=== PATIENT | male | born 1985 | race Caucasian/White ===

== ENCOUNTER 2016-08-02 13:26 | Emergency (ER) | payer SELFPAY ==
[2016-08-02] MEDS ORDERED: diazePAM 5 MG TAB As Ordered ONE (15:10)
[2016-08-02] MEDS ORDERED: KETOROLAC 30 MG/ML VIAL (J1885) As Ordered ONE (15:10)
--- NOTE | 2016-08-02 18:43 | REP ---
MRI LUMBAR SPINE WITHOUT CONTRAST: HISTORY: Back pain. Decreased signal intensity on T2-weighted images is present in the L3-4 and L4-5 intervertebral discs. The discs are decreased in height. These findings are consistent with disc degeneration. A diffuse disc bulge is present at the L1-2 level. There is minimal compression of the thecal sac. The L1 nerves exit the neural foramina without compression. A diffuse disc bulge is present at the L2-3 level. There is minimal compression of the thecal sac. The L2 nerves exit the neural foramina without compression. A diffuse disc bulge and small central disc protrusion are present at the L3-4 level. There is hypertrophy of the ligamenta flava and posterior articulating facets. These findings produce minimal central canal stenosis. The L3 nerves exit the neural foramina without compression. A diffuse disc bulge and mild size central disc extrusion are present at the L4-5 level. There is inferior migration of disc material. There is mild compression of the thecal sac and L5 nerves as they exit the thecal sac and in the L5 lateral recess. There is hypertrophy of the posterior articulating facets. The L4 nerves exit the neural foramina without compression. There is no disc bulge or herniation at the L5-S1 level. The L5 nerves exit the neural foramina without compression. The conus medullaris is normal in appearance terminating at the level of the T12-L1 intervertebral disc. A hemangioma is present in the L5 vertebral body. Increased signal intensity on T2-weighted images is present in the superior endplate of the L4 vertebral body. This represents degenerative change. IMPRESSION: 1. Diffuse disc bulges at the L1-2 and L2-3 levels with minimal thecal sac compression. 2. Minimal central canal stenosis at the L3-4 level secondary to disc bulge, disc protrusion, ligamentous and facet hypertrophy. 3. Diffuse disc bulge and mild sized central disc extrusion at the L4-5 level with mild compression of the thecal sac and L5 nerves as they exit the thecal sac and in the L5 lateral recess. Signed by Manolo Issa MD 08/03/2016 08:19 A
--- NOTE | 2016-08-02 19:30 | EDDOCDS ---
Nurse's Notes [facility] Name: Winston Rosario Age: 30 yrs Sex: Male : 1985 Arrival Date: 08/02/2016 Time: 13:26 Bed I6 / 28 Private MD: No Pcp Diagnosis: Intervertebral disc disorders with radiculopathy, lumbosacral region;Intervertebral disc stenosis of neural canal of lumbar region;Other intervertebral disc disorders, lumbar region;Other intervertebral disc disorders, lumbosacral region Presentation: 08/02 13:30 Presenting complaint: Patient states: lower back pain on and off for few years. pain rs3 radiating to Left leg, numbness, tingling in left leg and toes for few weeks. Adult Sepsis Screening: The patient does not have new or worsening altered mentation. Patient's respiratory rate is less than 22. Systolic blood pressure is greater than 100. Patient has a qSOFA score of 0- Negative Sepsis Screen. Suicide/Homicide risk assessment- the patient denies having any suicidal and/or homicidal ideations and does not present with any other emotional, behavioral or mental health complaints. Status: Patient is not a kosher dietary service manager or dependent. Transition of care: patient was not received from another setting of care. 13:30 Acuity: LIAN Level 4 rs3 13:30 Method Of Arrival: Walkin/Carried/Asstd rs3 Triage Assessment: 13:32 General: Appears in no apparent distress. Pain: Location: lumbar area. Pt Declines HIV rs3 testing. Historical: - Allergies: no known allergies; - Home Meds: 1. none - PMHx: none; - PSHx: none; - Social history: Smoking status: Patient states former smoker of tobacco. No barriers to communication noted, The patient speaks fluent Ivorian. - Family history: Not pertinent. - : The pt / caregiver states he / she is not on anticoagulants. Home medication list is obtained from the patient. - Exposure Risk Screening:: None identified. Screenin:01 Screening information is obtained from the patient. Fall risk: No risks identified. kr3 Assistance ADL's: requires no assistance with activities of daily living. Abuse/DV Screen: The patient / caregiver reports he/she is: not in a situation that causes fear, pain or injury. Nutritional screening: No deficits noted. Advance Directives: Currently, there is no health care proxy. home support is adequate. Assessment: 16:01 Reassessment: Patient appears in no apparent distress at this time. Patient denies pain kr3 at this time. Neurological: Level of Consciousness is awake, alert. Respiratory: Respiratory effort is even, unlabored. Derm: Skin is normal. 17:14 Reassessment: Patient appears in no apparent distress at this time. kr3 17:24 General: Appears in no apparent distress, Behavior is appropriate for age, cooperative. dsf Pain: Location: lumbar area Pain currently is 3 out of 10 on a pain scale. Neurological: Level of Consciousness is awake, alert. Cardiovascular: Capillary refill < 3 seconds. Respiratory: Airway is patent Respiratory effort is even, unlabored, Respiratory pattern is regular, symmetrical. Derm: Skin is pink, warm & dry. 18:44 General: Appears in no apparent distress, Behavior is appropriate for age, cooperative. dsf Neurological: Level of Consciousness is awake, alert. Cardiovascular: Capillary refill < 3 seconds. Respiratory: Airway is patent Respiratory effort is even, unlabored, Respiratory pattern is regular, symmetrical. Derm: Skin is pink, warm & dry. 19:28 Adult Sepsis Screening: The patient does not have new or worsening altered mentation. dsf Patient's respiratory rate is less than 22. Systolic blood pressure is greater than 100. Patient has a qSOFA score of 0- Negative Sepsis Screen. General: Appears in no apparent distress, comfortable, Behavior is appropriate for age, cooperative. Pain: Location: lumbar area Pain currently is 7 out of 10 on a pain scale. Neurological: Level of Consciousness is awake, alert, Oriented to person, place, time. Cardiovascular: No deficits noted. Respiratory: No deficits noted. Derm: Skin is pink, warm & dry. Vital Signs: 13:28 BP 126 / 73; Pulse 69; Resp 18 S; Temp 98.4(O); Pulse Ox 100% on R/A; Weight 90.72 kg; gr2 Height 5 ft. 7 in. (170.18 cm) (R); Pain 6/10; 17:06 BP 109 / 62; Pulse 55; Resp 18; Temp 97.8; Pulse Ox 98% ; Pain 3/10; jam1 18:44 BP 106 / 53; Pulse 54; Resp 18; Temp 97.4; Pulse Ox 96% ; Pain 0/10; ajs 13:28 Body Mass Index 31.32 (90.72 kg, 170.18 cm) gr2 Vitals: 13:28 Log In Time: August 02, 2016 at 13:28. gr2 ED Course: 13:26 Patient visited by Son Koenig. gr2 13:26 Patient moved to Waiting gr2 13:27 No Pcp is Private Physician. gr2 13:29 Patient visited by Son Koenig. gr2 13:30 Patient moved to Pre RCE gr2 13:31 Triage Initiated rs3 14:29 Patient moved to Triage 1 rs3 14:50 Julee Murrell PA-C is PHCP. dt4 14:50 Jono Villela MD is Attending Physician. dt4 14:50 Patient visited by Julee Murrell PA-C. dt4 15:06 Patient moved to I6 mk4 15:29 Patient visited by Carley Ramos RN. mk4 15:53 REPLACED BY [facility] Payment Agreement was scanned into [employer] and attached to record. jp5 16:00 Patient visited by Crissy Mcguire RN. kr3 16:00 Patient moved to MRI kr3 16:01 The patient / caregiver is instructed regarding the plan of care and ED course. kr3 Accompanied by Family Member, Patient has correct armband on for positive identification. 16:01 No procedures done that require assistance. kr3 16:57 Patient name changed from Winston\S\L\S\Abraham\S\ to Winston\S\Jailene\S\Abraham. EDMS 17:02 Patient moved to I6 dsf 17:14 Patient visited by Crissy Mcguire,SAGAR. kr3 17:25 Patient visited by Dayana Neal,SAGAR. dsf 18:02 PHCP role handed off by Julee Murrell PA-C btw 18:02 Norris Diallo PA is PHCP. btw 18:44 Patient visited by Dayana Neal,SAGAR. dsf 18:45 Patient visited by Velvet Landers. ajs 19:12 -MRI-Spine, Lumbar without contrast Returned. EDMS 19:23 Robin Sun is Referral Physician. btw 19:28 No IV's were initiated during this patient's visit. dsf Administered Medications: 15:29 Drug: ketorolac 60 mg [ketorolac 30 mg/mL (1 mL) injection solution (2 mL)] Route: IM; mk4 Site: left gluteus; 16:00 Follow up: Response: Pain is resolved kr3 15:29 Drug: Diazepam 5 mg [diazepam 5 mg tablet (1 tabs)] Route: PO; mk4 16:00 Follow up: Response: No Adverse Reaction kr3 Order Results: Radiology Order: -MRI-Spine, Lumbar without contrast Test: -MRI-Spine, Lumbar without contrast REASON FOR EXAMINATION: LOW BACK PAIN, LEFT LEG NUMB/WEAK; MRI LUMBAR SPINE WITHOUT CONTRAST:; ; HISTORY: Back pain.; ; Decreased signal intensity on T2-weighted images is present in the L3-4 and L4-5; intervertebral discs. The discs are decreased in height. These findings are; consistent with disc degeneration.; ; A diffuse disc bulge is present at the L1-2 level. There is minimal compression; of the thecal sac. The L1 nerves exit the neural foramina without compression.; ; A diffuse disc bulge is present at the L2-3 level. There is minimal compression; of the thecal sac. The L2 nerves exit the neural foramina without compression.; ; A diffuse disc bulge and small central disc protrusion are present at the L3-4; level. There is hypertrophy of the ligamenta flava and posterior articulating; facets. These findings produce minimal central canal stenosis. The L3 nerves exit; the neural foramina without compression.; ; A diffuse disc bulge and mild size central disc extrusion are present at the L4-5; level. There is inferior migration of disc material. There is mild compression of; the thecal sac and L5 nerves as they exit the thecal sac and in the L5 lateral; recess. There is hypertrophy of the posterior articulating facets. The L4 nerves; exit the neural foramina without compression.; ; There is no disc bulge or herniation at the L5-S1 level. The L5 nerves exit the; neural foramina without compression.; ; The conus medullaris is normal in appearance terminating at the level of the; T12-L1 intervertebral disc. A hemangioma is present in the L5 vertebral body.; Increased signal intensity on T2-weighted images is present in the superior; endplate of the L4 vertebral body. This represents degenerative change.; ; IMPRESSION:; 1. Diffuse disc bulges at the L1-2 and L2-3 levels with minimal thecal sac; compression.; 2. Minimal central canal stenosis at the L3-4 level secondary to disc bulge, disc; protrusion, ligamentous and facet hypertrophy.; 3. Diffuse disc bulge and mild sized central disc extrusion at the L4-5 level; with mild compression of the thecal sac and L5 nerves as they exit the thecal sac; and in the L5 lateral recess.; ; ; ; Unreviewed; Outcome: 16:01 MRI Study completed. kr3 19:24 Discharge ordered by Provider. btw 19:28 Discharge Assessment: Patient awake, alert and oriented x 3. No cognitive and/or dsf functional deficits noted. Patient verbalized understanding of disposition instructions. patient administered narcotics - yes. Pt provided with safe discharge. The following High Risk Discharge criteria are identified: None. Discharged to home ambulatory, with significant other. Condition: stable. Discharge instructions given to patient, significant other, Instructed on discharge instructions, follow up and referral plans. medication usage, no driving heavy equipment, Demonstrated understanding of instructions, medications, Pt was receptive of discharge instructions/ teaching. Prescriptions given X 3. Property sent home with patient. 19:29 Patient left the ED. dsf Signatures: Dispatcher [employer] EDMS Racheal Le, HOT BILLET SHEAR OPERATOR HOT BILLET SHEAR OPERATOR jam1 rCissy Mcguire,RN RN kr3 Daniela HollingsworthRN RN rs3 Norris Diallo PA PA btw Fuller, Desiree, RN RN dsf Velvet Landers Gainslee gr2 Carley Ramos RN RN mk4 Julee Murrell PA-C PA-C dt4 Merrill Moran jp5 MTDD
--- NOTE | 2016-08-02 19:30 | EDDOCDS ---
Physician Documentation [facility] Name: Winston Rosario Age: 30 yrs Sex: Male : 1985 Arrival Date: 08/02/2016 Time: 13:26 Bed I6 / 28 Private MD: No Pcp Disposition: 08/02/16 19:24 Discharged to Home/Self Care. Impression: Intervertebral disc disorders with radiculopathy, lumbosacral region, Intervertebral disc stenosis of neural canal of lumbar region, Other intervertebral disc disorders, lumbar region, Other intervertebral disc disorders, lumbosacral region. - Condition is Stable. - Discharge Instructions: Herniated Disk, Lumbosacral Radiculopathy, Degenerative Disk Disease. - Prescriptions for Medrol (Jamal) 4 mg Oral Tablets, Dose Pack - take 1 Pack by ORAL route as directed - follow package instructions; 1 packet. Tramadol 50 mg Oral Tablet - take 1 tablet by ORAL route 4 times per day As needed MDD: 4 tabs; 20 tablet. Robaxin- 750 750 mg Oral Tablet - take 1 tablet by ORAL route every 6 hours As needed; 40 tablet. - Medication Reconciliation, Local Pharmacy Hours form. - Follow up: Robin Sun; When: 1 - 2 days; Reason: Further diagnostic work-up, Recheck today's complaints, Continuance of care. - Problem is new. - Symptoms are unchanged. Historical: - Allergies: no known allergies; - Home Meds: 1. none - PMHx: none; - PSHx: none; - Social history: Smoking status: Patient states former smoker of tobacco. No barriers to communication noted, The patient speaks fluent Slovak. - Family history: Not pertinent. - : The pt / caregiver states he / she is not on anticoagulants. Home medication list is obtained from the patient. - Exposure Risk Screening:: None identified. Vital Signs: 08/02 13:28 BP 126 / 73; Pulse 69; Resp 18 S; Temp 98.4(O); Pulse Ox 100% on R/A; Weight 90.72 kg / gr2 200 lbs; Height 5 ft. 7 in. (170.18 cm) (R); Pain 6/10; 17:06 BP 109 / 62; Pulse 55; Resp 18; Temp 97.8; Pulse Ox 98% ; Pain 3/10; jam1 18:44 BP 106 / 53; Pulse 54; Resp 18; Temp 97.4; Pulse Ox 96% ; Pain 0/10; ajs 13:28 Body Mass Index 31.32 (90.72 kg, 170.18 cm) gr2 MDM: 15:05 MRI Screening Tool - Place on chart, inform RN ordered. dt4 15:05 ketorolac 60 mg IM once ordered. dt4 15:05 Diazepam 5 mg PO once ordered. dt4 15:06 -MRI-Spine, Lumbar without contrast Ordered. EDMS 15:29 MRI Screening Tool - Place on chart, inform RN complete. mk4 15:53 [facility] Payment Agreement was scanned into [facility] and attached to record. jp5 15:53 Financial registration complete. jp5 Administered Medications: 15:29 Drug: ketorolac 60 mg [ketorolac 30 mg/mL (1 mL) injection solution (2 mL)] Route: IM; mk4 Site: left gluteus; 16:00 Follow up: Response: Pain is resolved kr3 15:29 Drug: Diazepam 5 mg [diazepam 5 mg tablet (1 tabs)] Route: PO; mk4 16:00 Follow up: Response: No Adverse Reaction kr3 Signatures: Dispatcher [employer] EDMS Crissy Mcguire,RN RN kr3 Daniela HollingsworthRN RN rs3 Norris Diallo PA PA btw Fuller, Desiree,RN RN dsCarley Spivey RN RN mk4 Julee Murrell PA-C PAMerrill Tam jp5 The chart was reviewed and I authenticate all verbal orders and agree with the evaluation and treatment provided.Attachments: 15:53 [facility] Payment Agreement jp5 MTDD
--- NOTE | 2016-08-04 20:30 | EDDOCDS ---
Physician Documentation [facility] Name: Winston Rosario Age: 30 yrs Sex: Male : 1985 Arrival Date: 08/02/2016 Time: 13:26 Bed I6 / 28 Private MD: No Pcp Disposition: 08/02/16 19:24 Discharged to Home/Self Care. Impression: Intervertebral disc disorders with radiculopathy, lumbosacral region, Intervertebral disc stenosis of neural canal of lumbar region, Other intervertebral disc disorders, lumbar region, Other intervertebral disc disorders, lumbosacral region. - Condition is Stable. - Discharge Instructions: Herniated Disk, Lumbosacral Radiculopathy, Degenerative Disk Disease. - Prescriptions for Medrol (Jamal) 4 mg Oral Tablets, Dose Pack - take 1 Pack by ORAL route as directed - follow package instructions; 1 packet. Tramadol 50 mg Oral Tablet - take 1 tablet by ORAL route 4 times per day As needed MDD: 4 tabs; 20 tablet. Robaxin- 750 750 mg Oral Tablet - take 1 tablet by ORAL route every 6 hours As needed; 40 tablet. - Medication Reconciliation, Local Pharmacy Hours form. - Follow up: Robin Sun; When: 1 - 2 days; Reason: Further diagnostic work-up, Recheck today's complaints, Continuance of care. - Problem is new. - Symptoms are unchanged. Historical: - Allergies: no known allergies; - Home Meds: 1. none - PMHx: none; - PSHx: none; - Social history: Smoking status: Patient states former smoker of tobacco. No barriers to communication noted, The patient speaks fluent Hungarian. - Family history: Not pertinent. - : The pt / caregiver states he / she is not on anticoagulants. Home medication list is obtained from the patient. - Exposure Risk Screening:: None identified. Vital Signs: 08/02 13:28 BP 126 / 73; Pulse 69; Resp 18 S; Temp 98.4(O); Pulse Ox 100% on R/A; Weight 90.72 kg / gr2 200 lbs; Height 5 ft. 7 in. (170.18 cm) (R); Pain 6/10; 17:06 BP 109 / 62; Pulse 55; Resp 18; Temp 97.8; Pulse Ox 98% ; Pain 3/10; jam1 18:44 BP 106 / 53; Pulse 54; Resp 18; Temp 97.4; Pulse Ox 96% ; Pain 0/10; ajs 13:28 Body Mass Index 31.32 (90.72 kg, 170.18 cm) gr2 MDM: 15:05 MRI Screening Tool - Place on chart, inform RN ordered. dt4 15:05 ketorolac 60 mg IM once ordered. dt4 15:05 Diazepam 5 mg PO once ordered. dt4 15:06 -MRI-Spine, Lumbar without contrast Ordered. EDMS 15:29 MRI Screening Tool - Place on chart, inform RN complete. mk4 15:53 [facility] Payment Agreement was scanned into [employer] and attached to record. jp5 15:53 Financial registration complete. jp5 08/03 10:14 T-Sheet-- Draft Copy was scanned into [employer] and attached to record. gb 10:15 Radiology Report was scanned into [employer] and attached to record. gb Administered Medications: 08/02 15:29 Drug: ketorolac 60 mg [ketorolac 30 mg/mL (1 mL) injection solution (2 mL)] Route: IM; mk4 Site: left gluteus; 16:00 Follow up: Response: Pain is resolved kr3 15:29 Drug: Diazepam 5 mg [diazepam 5 mg tablet (1 tabs)] Route: PO; mk4 16:00 Follow up: Response: No Adverse Reaction kr3 Signatures: Dispatcher [employer] EDMS Jennifer Yang, Ike Reg Crissy SingerRN RN kr3 Daniela HollingsworthRN RN rs3 Norris Diallo PA PA btw Fuller, DesireeRN RN dsCarley Spivey RN RN mk4 Julee Murrell PA-C PAJulian chun4 Merrill Moran jp5 The chart was reviewed and I authenticate all verbal orders and agree with the evaluation and treatment provided.Attachments: 15:53 [facility] Payment Agreement jp5 08/03 10:14 T-Sheet-- Draft Copy gb Chart Complete MTDD
--- NOTE | 2016-08-04 20:30 | EDDOCDS ---
Nurse's Notes [facility] Name: Winston Rosario Age: 30 yrs Sex: Male : 1985 Arrival Date: 08/02/2016 Time: 13:26 Bed I6 / 28 Private MD: No Pcp Diagnosis: Intervertebral disc disorders with radiculopathy, lumbosacral region;Intervertebral disc stenosis of neural canal of lumbar region;Other intervertebral disc disorders, lumbar region;Other intervertebral disc disorders, lumbosacral region Presentation: 08/02 13:30 Presenting complaint: Patient states: lower back pain on and off for few years. pain rs3 radiating to Left leg, numbness, tingling in left leg and toes for few weeks. Adult Sepsis Screening: The patient does not have new or worsening altered mentation. Patient's respiratory rate is less than 22. Systolic blood pressure is greater than 100. Patient has a qSOFA score of 0- Negative Sepsis Screen. Suicide/Homicide risk assessment- the patient denies having any suicidal and/or homicidal ideations and does not present with any other emotional, behavioral or mental health complaints. Status: Patient is not a student services rep or dependent. Transition of care: patient was not received from another setting of care. 13:30 Acuity: LIAN Level 4 rs3 13:30 Method Of Arrival: Walkin/Carried/Asstd rs3 Triage Assessment: 13:32 General: Appears in no apparent distress. Pain: Location: lumbar area. Pt Declines HIV rs3 testing. Historical: - Allergies: no known allergies; - Home Meds: 1. none - PMHx: none; - PSHx: none; - Social history: Smoking status: Patient states former smoker of tobacco. No barriers to communication noted, The patient speaks fluent Turkish. - Family history: Not pertinent. - : The pt / caregiver states he / she is not on anticoagulants. Home medication list is obtained from the patient. - Exposure Risk Screening:: None identified. Screenin:01 Screening information is obtained from the patient. Fall risk: No risks identified. kr3 Assistance ADL's: requires no assistance with activities of daily living. Abuse/DV Screen: The patient / caregiver reports he/she is: not in a situation that causes fear, pain or injury. Nutritional screening: No deficits noted. Advance Directives: Currently, there is no health care proxy. home support is adequate. Assessment: 16:01 Reassessment: Patient appears in no apparent distress at this time. Patient denies pain kr3 at this time. Neurological: Level of Consciousness is awake, alert. Respiratory: Respiratory effort is even, unlabored. Derm: Skin is normal. 17:14 Reassessment: Patient appears in no apparent distress at this time. kr3 17:24 General: Appears in no apparent distress, Behavior is appropriate for age, cooperative. dsf Pain: Location: lumbar area Pain currently is 3 out of 10 on a pain scale. Neurological: Level of Consciousness is awake, alert. Cardiovascular: Capillary refill < 3 seconds. Respiratory: Airway is patent Respiratory effort is even, unlabored, Respiratory pattern is regular, symmetrical. Derm: Skin is pink, warm & dry. 18:44 General: Appears in no apparent distress, Behavior is appropriate for age, cooperative. dsf Neurological: Level of Consciousness is awake, alert. Cardiovascular: Capillary refill < 3 seconds. Respiratory: Airway is patent Respiratory effort is even, unlabored, Respiratory pattern is regular, symmetrical. Derm: Skin is pink, warm & dry. 19:28 Adult Sepsis Screening: The patient does not have new or worsening altered mentation. dsf Patient's respiratory rate is less than 22. Systolic blood pressure is greater than 100. Patient has a qSOFA score of 0- Negative Sepsis Screen. General: Appears in no apparent distress, comfortable, Behavior is appropriate for age, cooperative. Pain: Location: lumbar area Pain currently is 7 out of 10 on a pain scale. Neurological: Level of Consciousness is awake, alert, Oriented to person, place, time. Cardiovascular: No deficits noted. Respiratory: No deficits noted. Derm: Skin is pink, warm & dry. Vital Signs: 13:28 BP 126 / 73; Pulse 69; Resp 18 S; Temp 98.4(O); Pulse Ox 100% on R/A; Weight 90.72 kg; gr2 Height 5 ft. 7 in. (170.18 cm) (R); Pain 6/10; 17:06 BP 109 / 62; Pulse 55; Resp 18; Temp 97.8; Pulse Ox 98% ; Pain 3/10; jam1 18:44 BP 106 / 53; Pulse 54; Resp 18; Temp 97.4; Pulse Ox 96% ; Pain 0/10; ajs 13:28 Body Mass Index 31.32 (90.72 kg, 170.18 cm) gr2 Vitals: 13:28 Log In Time: August 02, 2016 at 13:28. gr2 ED Course: 13:26 Patient visited by Son Koenig. gr2 13:26 Patient moved to Waiting gr2 13:27 No Pcp is Private Physician. gr2 13:29 Patient visited by Son Koenig. gr2 13:30 Patient moved to Pre RCE gr2 13:31 Triage Initiated rs3 14:29 Patient moved to Triage 1 rs3 14:50 Julee Murrell PA-C is PHCP. dt4 14:50 Jono Villela MD is Attending Physician. dt4 14:50 Patient visited by Julee Murrell PA-C. dt4 15:06 Patient moved to I mk4 15:29 Patient visited by Carley Ramos RN. mk4 15:53 [facility] Payment Agreement was scanned into [employer] and attached to record. jp5 16:00 Patient visited by Crissy Mcguire RN. kr3 16:00 Patient moved to MRI kr3 16:01 The patient / caregiver is instructed regarding the plan of care and ED course. kr3 Accompanied by Family Member, Patient has correct armband on for positive identification. 16:01 No procedures done that require assistance. kr3 16:57 Patient name changed from Winston\S\L\S\Abraham\S\ to Winston\S\Jailene\S\Abraham. EDMS 17:02 Patient moved to I6 dsf 17:14 Patient visited by Crissy Mcguire,SAGAR. kr3 17:25 Patient visited by Dayana Neal,SAGAR. dsf 18:02 PHCP role handed off by Julee Murrell PA-C btw 18:02 Norris Diallo PA is PHCP. btw 18:44 Patient visited by Dayana Neal,SAGAR. dsf 18:45 Patient visited by Velvet Landers. ajs 19:12 -MRI-Spine, Lumbar without contrast Returned. EDMS 19:23 Robin Sun is Referral Physician. btw 19:28 No IV's were initiated during this patient's visit. dsf 01/13 10:14 T-Sheet-- Draft Copy was scanned into [employer] and attached to record. gb 10:15 Radiology Report was scanned into [employer] and attached to record. gb Administered Medications: 08/02 15:29 Drug: ketorolac 60 mg [ketorolac 30 mg/mL (1 mL) injection solution (2 mL)] Route: IM; mk4 Site: left gluteus; 16:00 Follow up: Response: Pain is resolved kr3 15:29 Drug: Diazepam 5 mg [diazepam 5 mg tablet (1 tabs)] Route: PO; mk4 16:00 Follow up: Response: No Adverse Reaction kr3 Order Results: Radiology Order: -MRI-Spine, Lumbar without contrast Test: -MRI-Spine, Lumbar without contrast REASON FOR EXAMINATION: LOW BACK PAIN, LEFT LEG NUMB/WEAK; MRI LUMBAR SPINE WITHOUT CONTRAST:; ; HISTORY: Back pain.; ; Decreased signal intensity on T2-weighted images is present in the L3-4 and L4-5; intervertebral discs. The discs are decreased in height. These findings are; consistent with disc degeneration.; ; A diffuse disc bulge is present at the L1-2 level. There is minimal compression; of the thecal sac. The L1 nerves exit the neural foramina without compression.; ; A diffuse disc bulge is present at the L2-3 level. There is minimal compression; of the thecal sac. The L2 nerves exit the neural foramina without compression.; ; A diffuse disc bulge and small central disc protrusion are present at the L3-4; level. There is hypertrophy of the ligamenta flava and posterior articulating; facets. These findings produce minimal central canal stenosis. The L3 nerves exit; the neural foramina without compression.; ; A diffuse disc bulge and mild size central disc extrusion are present at the L4-5; level. There is inferior migration of disc material. There is mild compression of; the thecal sac and L5 nerves as they exit the thecal sac and in the L5 lateral; recess. There is hypertrophy of the posterior articulating facets. The L4 nerves; exit the neural foramina without compression.; ; There is no disc bulge or herniation at the L5-S1 level. The L5 nerves exit the; neural foramina without compression.; ; The conus medullaris is normal in appearance terminating at the level of the; T12-L1 intervertebral disc. A hemangioma is present in the L5 vertebral body.; Increased signal intensity on T2-weighted images is present in the superior; endplate of the L4 vertebral body. This represents degenerative change.; ; IMPRESSION:; ; 1. Diffuse disc bulges at the L1-2 and L2-3 levels with minimal thecal sac; compression.; ; 2. Minimal central canal stenosis at the L3-4 level secondary to disc bulge, disc; protrusion, ligamentous and facet hypertrophy.; ; 3. Diffuse disc bulge and mild sized central disc extrusion at the L4-5 level; with mild compression of the thecal sac and L5 nerves as they exit the thecal sac; and in the L5 lateral recess.; ; ; Signed by; Manolo Issa MD 08/03/2016 08:19 A; Outcome: 16:01 MRI Study completed. kr3 19:24 Discharge ordered by Provider. btw 19:28 Discharge Assessment: Patient awake, alert and oriented x 3. No cognitive and/or dsf functional deficits noted. Patient verbalized understanding of disposition instructions. patient administered narcotics - yes. Pt provided with safe discharge. The following High Risk Discharge criteria are identified: None. Discharged to home ambulatory, with significant other. Condition: stable. Discharge instructions given to patient, significant other, Instructed on discharge instructions, follow up and referral plans. medication usage, no driving heavy equipment, Demonstrated understanding of instructions, medications, Pt was receptive of discharge instructions/ teaching. Prescriptions given X 3. Property sent home with patient. 19:29 Patient left the ED. dsf Signatures: Dispatcher [employer] EDMS Racheal Le, BRIDGE WORKER APPRENTICE BRIDGE WORKER APPRENTICE jam1 Jennifer Yang, Reg Reg Crissy Singer,RN RN kr3 Daniela HollingsworthRN RN rs3 Norris Diallo PA PA btw Fuller, Desiree,RN RN dsf Velvet Landers Gainslee gr2 Carley Ramos RN RN mk4 Julee Murrell, PA-C PA-C adiel4 Merrill Moran jp5 Chart Complete MTDD
--- NOTE | 2016-08-04 20:30 | EDDOCDS ---
Physician Documentation [facility] Name: Winston Rosario Age: 30 yrs Sex: Male : 1985 Arrival Date: 08/02/2016 Time: 13:26 Bed I6 / 28 Private MD: No Pcp Disposition: 08/02/16 19:24 Discharged to Home/Self Care. Impression: Intervertebral disc disorders with radiculopathy, lumbosacral region, Intervertebral disc stenosis of neural canal of lumbar region, Other intervertebral disc disorders, lumbar region, Other intervertebral disc disorders, lumbosacral region. - Condition is Stable. - Discharge Instructions: Herniated Disk, Lumbosacral Radiculopathy, Degenerative Disk Disease. - Prescriptions for Medrol (Jamal) 4 mg Oral Tablets, Dose Pack - take 1 Pack by ORAL route as directed - follow package instructions; 1 packet. Tramadol 50 mg Oral Tablet - take 1 tablet by ORAL route 4 times per day As needed MDD: 4 tabs; 20 tablet. Robaxin- 750 750 mg Oral Tablet - take 1 tablet by ORAL route every 6 hours As needed; 40 tablet. - Medication Reconciliation, Local Pharmacy Hours form. - Follow up: Robin Sun; When: 1 - 2 days; Reason: Further diagnostic work-up, Recheck today's complaints, Continuance of care. - Problem is new. - Symptoms are unchanged. Historical: - Allergies: no known allergies; - Home Meds: 1. none - PMHx: none; - PSHx: none; - Social history: Smoking status: Patient states former smoker of tobacco. No barriers to communication noted, The patient speaks fluent Romansh. - Family history: Not pertinent. - : The pt / caregiver states he / she is not on anticoagulants. Home medication list is obtained from the patient. - Exposure Risk Screening:: None identified. Vital Signs: 08/02 13:28 BP 126 / 73; Pulse 69; Resp 18 S; Temp 98.4(O); Pulse Ox 100% on R/A; Weight 90.72 kg / gr2 200 lbs; Height 5 ft. 7 in. (170.18 cm) (R); Pain 6/10; 17:06 BP 109 / 62; Pulse 55; Resp 18; Temp 97.8; Pulse Ox 98% ; Pain 3/10; jam1 18:44 BP 106 / 53; Pulse 54; Resp 18; Temp 97.4; Pulse Ox 96% ; Pain 0/10; ajs 13:28 Body Mass Index 31.32 (90.72 kg, 170.18 cm) gr2 MDM: 15:05 MRI Screening Tool - Place on chart, inform RN ordered. dt4 15:05 ketorolac 60 mg IM once ordered. dt4 15:05 Diazepam 5 mg PO once ordered. dt4 15:06 -MRI-Spine, Lumbar without contrast Ordered. EDMS 15:29 MRI Screening Tool - Place on chart, inform RN complete. mk4 15:53 [facility] Payment Agreement was scanned into [employer] and attached to record. jp5 15:53 Financial registration complete. jp5 08/03 10:14 T-Sheet-- Draft Copy was scanned into [employer] and attached to record. gb 10:15 Radiology Report was scanned into [employer] and attached to record. gb Administered Medications: 08/02 15:29 Drug: ketorolac 60 mg [ketorolac 30 mg/mL (1 mL) injection solution (2 mL)] Route: IM; mk4 Site: left gluteus; 16:00 Follow up: Response: Pain is resolved kr3 15:29 Drug: Diazepam 5 mg [diazepam 5 mg tablet (1 tabs)] Route: PO; mk4 16:00 Follow up: Response: No Adverse Reaction kr3 Signatures: Dispatcher [employer] EDMS Jennifer Yang, Ike Reg Crissy SingerRN RN kr3 Daniela HollingsworthRN RN rs3 Norris Diallo PA PA btw Fuller, DesireeRN RN dsCarley Spivey RN RN mk4 Julee Murrell PA-C PAJulian chun4 Merrill Moran jp5 The chart was reviewed and I authenticate all verbal orders and agree with the evaluation and treatment provided.Attachments: 15:53 [facility] Payment Agreement jp5 08/03 10:14 T-Sheet-- Draft Copy gb Chart Complete MTDD
== END 2016-08-02 19:24 | disposition home or self-care (01) ==
LOC: M ED 13:26
DX: M51.27 Other intervertebral disc displacement, lumbosacral region (principal); M54.17 Radiculopathy, lumbosacral region; M48.07 Spinal stenosis, lumbosacral region; M51.06 Intervertebral disc disorders with myelopathy, lumbar region; M79.652 Pain in left thigh; Z87.891 Personal history of nicotine dependence
CPT/HCPCS: 72148; 96372; 99284; J1885

== ENCOUNTER 2016-09-09 15:58 | Emergency (ER) | payer SELFPAY ==
--- NOTE | 2016-09-09 17:49 | EDDOCDS ---
Nurse's Notes [facility] Name: Winston Rosario Age: 31 yrs Sex: Male : 1985 Arrival Date: 09/09/2016 Time: 15:58 Bed TR8 Private MD: No Pcp Diagnosis: Low back pain;Radiculopathy, lumbar region Presentation: 09/09 16:04 Presenting complaint: Patient states: low back pain that radiates down left leg. has srm had MRI and showed ruptured discs and DDD. pain for 4 days. cant do every day normal activities. Acute neurological deficits are not present. Mechanism of Injury: No Mechanism of Injury. Adult Sepsis Screening: The patient does not have new or worsening altered mentation. Patient's respiratory rate is less than 22. Systolic blood pressure is greater than 100. Patient has a qSOFA score of 0- Negative Sepsis Screen. Suicide/Homicide risk assessment- the patient denies having any suicidal and/or homicidal ideations and does not present with any other emotional, behavioral or mental health complaints. Status: Patient is not a health service coordinator or dependent. Transition of care: patient was not received from another setting of care. 16:04 Acuity: LIAN Level 4 srm 16:04 Method Of Arrival: Walkin/Carried/Asstd srm Triage Assessment: 16:07 General: Appears in no apparent distress, Behavior is appropriate for age, cooperative. srm Pain: Pain currently is 10 out of 10 on a pain scale. Pain: Pain. HIV screening NA for this visit Offered previously. Musculoskeletal: Reports chronic low back pain. Historical: - Allergies: no known allergies; - Home Meds: 1. none - PMHx: low back pain; ruptured discs; - PSHx: none; - Social history: No barriers to communication noted, The patient speaks fluent Papua [place] Guinean, Speaks appropriately for age, Smoking status: Patient uses tobacco products, current every day smoker. - Family history: Not pertinent. - : The pt / caregiver states he / she is not on anticoagulants. Home medication list is obtained from the patient. - Exposure Risk Screening:: None identified. Screenin:46 Screening information is obtained from the patient. Fall risk: No risks identified. [facility] Assistance ADL's: requires no assistance with activities of daily living. Abuse/DV Screen: The patient / caregiver reports he/she is: not in a situation that causes fear, pain or injury. Nutritional screening: No deficits noted. Advance Directives: There is no active DNR order. home support is adequate. Assessment: 17:46 General: Appears in no apparent distress, comfortable, Behavior is appropriate for age, cjh cooperative. Pain: Location: back Pain currently is 8 out of 10 on a pain scale. Respiratory: Airway is patent Respiratory effort is even, unlabored, Respiratory pattern is regular, symmetrical. Derm: Skin is pink, warm & dry. Musculoskeletal: Range of motion intact in all extremities. torso movements slow and guarded. Vital Signs: 16:01 BP 122 / 69; Pulse 69; Resp 18 S; Temp 97.4(O); Pulse Ox 98% on R/A; Weight 90.72 kg gr2 (R); Height 5 ft. 7 in. (170.18 cm) (R); Pain 8/10; 17:42 BP 121 / 74; Pulse 57; Resp 16; Temp 96.9(O); Pulse Ox 96% ; Pain 10/10; sew 16:01 Body Mass Index 31.32 (90.72 kg, 170.18 cm) gr2 Vitals: 16:01 Log In Time: September 09, 2016 at 16:01. gr2 ED Course: 16:00 Patient visited by Son Koenig. gr2 16:00 No Pcp is Private Physician. gr2 16:00 Patient moved to Waiting gr2 16:02 Patient visited by Son Koenig. gr2 16:02 Patient moved to Pre RCE gr2 16:06 Triage Initiated srm 16:41 Patient moved to Triage 2 bcj 17:15 Julee Murrell PA-C is PHCP. dt4 17:15 Josefa Banegas MD is Attending Physician. dt4 17:15 Patient visited by Julee Murrell PA-C. dt4 17:33 Robin Sun is Referral Physician. dt4 17:33 [facility] is Referral Physician. dt4 17:42 Patient visited by Melody Pagan. sew 17:46 Patient moved to TR8 sew 17:46 [facility] [place] Agreement was scanned into [employer] and attached to record. gjb 17:46 The patient / caregiver is instructed regarding the plan of care and ED course. cj 17:46 No IV's were initiated during this patient's visit. No procedures done that require [facility] assistance. Order Results: There are currently no results for this order. Outcome: 17:33 Discharge ordered by Provider. dt4 17:46 Discharge Assessment: Patient awake, alert and oriented x 3. No cognitive and/or [facility] functional deficits noted. Patient verbalized understanding of disposition instructions. patient administered narcotics - no. The following High Risk Discharge criteria are identified: None. Discharged to home ambulatory. Condition: good Condition: stable Condition: improved. No special radiology studies were completed. Property :Personal belongings accompany Pt. 17:48 Patient left the ED. [facility] Signatures: Angel Nieto RN RN Perlita Harris RN Racheal ReillyRN SAGAR [facility] Melody Pagan Gainslee gr2 Julee Murrell, GIOVANNI PA-Kendall dt4 Sharon Granados FADI
--- NOTE | 2016-09-09 17:49 | EDDOCDS ---
Physician Documentation [facility] Name: Winston Rosario Age: 31 yrs Sex: Male : 1985 Arrival Date: 09/09/2016 Time: 15:58 Bed TR8 Private MD: No Pcp Disposition: 09/09/16 17:33 Discharged to Home/Self Care. Impression: Low back pain, Radiculopathy, lumbar region. - Condition is Stable. - Discharge Instructions: Back Pain, Adult, Lumbosacral Radiculopathy. - Prescriptions for Valium 5 mg Oral Tablet - take 1 tablet by ORAL route every 8 hours As needed MDD: 3 tabs. may cause drowsiness; 20 tablet. Prednisone 20 mg Oral Tablet - take 2 tablets by ORAL route once daily for 5 days take with food, early in the day; 10 tablet. - Medication Reconciliation, Local Pharmacy Hours form. - Follow up: Emergency Department; When: As needed; Reason: Worsening of conditions. Follow up: Robin Sun; When: Call to arrange an appointment; Reason: Wound/Symptom Recheck, Further diagnostic work-up, Recheck today's complaints, Continuance of care, To establish care. Follow up: [facility]; When: Call to arrange an appointment; Reason: Wound/Symptom Recheck, Further diagnostic work-up, Recheck today's complaints, Continuance of care, To establish care. - Problem is new. - Symptoms are unchanged. Historical: - Allergies: no known allergies; - Home Meds: 1. none - PMHx: low back pain; ruptured discs; - PSHx: none; - Social history: No barriers to communication noted, The patient speaks fluent Tongan, Speaks appropriately for age, Smoking status: Patient uses tobacco products, current every day smoker. - Family history: Not pertinent. - : The pt / caregiver states he / she is not on anticoagulants. Home medication list is obtained from the patient. - Exposure Risk Screening:: None identified. Vital Signs: 09/09 16:01 BP 122 / 69; Pulse 69; Resp 18 S; Temp 97.4(O); Pulse Ox 98% on R/A; Weight 90.72 kg / gr2 200 lbs (R); Height 5 ft. 7 in. (170.18 cm) (R); Pain 8/10; 17:42 BP 121 / 74; Pulse 57; Resp 16; Temp 96.9(O); Pulse Ox 96% ; Pain 10/10; sew 16:01 Body Mass Index 31.32 (90.72 kg, 170.18 cm) gr2 MDM: 17:45 Financial registration complete. luna 17:46 [facility] Payment Agreement was scanned into [employer] and attached to record. gjb Signatures: Perlita Petersen RN RN [facility] Racheal Carias RN RN [facility] Julee Murrell, PA-C PA-C dt4 Sharon Granados The chart was reviewed and I authenticate all verbal orders and agree with the evaluation and treatment provided.Attachments: 17:46 [facility] [place] Agreement [email or web address] MTDD
--- NOTE | 2016-09-11 18:49 | EDDOCDS ---
Physician Documentation [facility] Name: Winston Rosario Age: 31 yrs Sex: Male : 1985 Arrival Date: 09/09/2016 Time: 15:58 Bed TR8 Private MD: No Pcp Disposition: 09/09/16 17:33 Discharged to Home/Self Care. Impression: Low back pain, Radiculopathy, lumbar region. - Condition is Stable. - Discharge Instructions: Back Pain, Adult, Lumbosacral Radiculopathy. - Prescriptions for Valium 5 mg Oral Tablet - take 1 tablet by ORAL route every 8 hours As needed MDD: 3 tabs. may cause drowsiness; 20 tablet. Prednisone 20 mg Oral Tablet - take 2 tablets by ORAL route once daily for 5 days take with food, early in the day; 10 tablet. - Medication Reconciliation, Local Pharmacy Hours form. - Follow up: Emergency Department; When: As needed; Reason: Worsening of conditions. Follow up: Robin Sun; When: Call to arrange an appointment; Reason: Wound/Symptom Recheck, Further diagnostic work-up, Recheck today's complaints, Continuance of care, To establish care. Follow up: [facility]; When: Call to arrange an appointment; Reason: Wound/Symptom Recheck, Further diagnostic work-up, Recheck today's complaints, Continuance of care, To establish care. - Problem is new. - Symptoms are unchanged. Historical: - Allergies: no known allergies; - Home Meds: 1. none - PMHx: low back pain; ruptured discs; - PSHx: none; - Social history: No barriers to communication noted, The patient speaks fluent Singaporean, Speaks appropriately for age, Smoking status: Patient uses tobacco products, current every day smoker. - Family history: Not pertinent. - : The pt / caregiver states he / she is not on anticoagulants. Home medication list is obtained from the patient. - Exposure Risk Screening:: None identified. Vital Signs: 09/09 16:01 BP 122 / 69; Pulse 69; Resp 18 S; Temp 97.4(O); Pulse Ox 98% on R/A; Weight 90.72 kg / gr2 200 lbs (R); Height 5 ft. 7 in. (170.18 cm) (R); Pain 8/10; 17:42 BP 121 / 74; Pulse 57; Resp 16; Temp 96.9(O); Pulse Ox 96% ; Pain 10/10; sew 16:01 Body Mass Index 31.32 (90.72 kg, 170.18 cm) gr2 MDM: 17:45 Financial registration complete. [facility] 17:46 [facility] Payment Agreement was scanned into [employer] and attached to record. b 21:16 T-Sheet-- Draft Copy was scanned into [employer] and attached to record. klr 09/10 11:56 Other: DRUG UTILIZATION REPORT was scanned into [employer] and attached to record. gb Signatures: Perlita Petersen RN RN srm Barnhardt, Gloria, Racheal Ellis RN RN [facility] Julee Murrell, PA-C PA-C Sharon Brito Kathie klr The chart was reviewed and I authenticate all verbal orders and agree with the evaluation and treatment provided.Attachments: 09/09 17:46 [facility] Payment Agreement [facility] 21:16 T-Sheet-- Draft Copy klr Chart Complete MTDD
--- NOTE | 2016-09-11 18:49 | EDDOCDS ---
Physician Documentation [facility] Name: Winston Rosario Age: 31 yrs Sex: Male : 1985 Arrival Date: 09/09/2016 Time: 15:58 Bed TR8 Private MD: No Pcp Disposition: 09/09/16 17:33 Discharged to Home/Self Care. Impression: Low back pain, Radiculopathy, lumbar region. - Condition is Stable. - Discharge Instructions: Back Pain, Adult, Lumbosacral Radiculopathy. - Prescriptions for Valium 5 mg Oral Tablet - take 1 tablet by ORAL route every 8 hours As needed MDD: 3 tabs. may cause drowsiness; 20 tablet. Prednisone 20 mg Oral Tablet - take 2 tablets by ORAL route once daily for 5 days take with food, early in the day; 10 tablet. - Medication Reconciliation, Local Pharmacy Hours form. - Follow up: Emergency Department; When: As needed; Reason: Worsening of conditions. Follow up: Robin Sun; When: Call to arrange an appointment; Reason: Wound/Symptom Recheck, Further diagnostic work-up, Recheck today's complaints, Continuance of care, To establish care. Follow up: [facility]; When: Call to arrange an appointment; Reason: Wound/Symptom Recheck, Further diagnostic work-up, Recheck today's complaints, Continuance of care, To establish care. - Problem is new. - Symptoms are unchanged. Historical: - Allergies: no known allergies; - Home Meds: 1. none - PMHx: low back pain; ruptured discs; - PSHx: none; - Social history: No barriers to communication noted, The patient speaks fluent Faroese, Speaks appropriately for age, Smoking status: Patient uses tobacco products, current every day smoker. - Family history: Not pertinent. - : The pt / caregiver states he / she is not on anticoagulants. Home medication list is obtained from the patient. - Exposure Risk Screening:: None identified. Vital Signs: 09/09 16:01 BP 122 / 69; Pulse 69; Resp 18 S; Temp 97.4(O); Pulse Ox 98% on R/A; Weight 90.72 kg / gr2 200 lbs (R); Height 5 ft. 7 in. (170.18 cm) (R); Pain 8/10; 17:42 BP 121 / 74; Pulse 57; Resp 16; Temp 96.9(O); Pulse Ox 96% ; Pain 10/10; sew 16:01 Body Mass Index 31.32 (90.72 kg, 170.18 cm) gr2 MDM: 17:45 Financial registration complete. [facility] 17:46 [facility] Payment Agreement was scanned into [employer] and attached to record. b 21:16 T-Sheet-- Draft Copy was scanned into [employer] and attached to record. klr 09/10 11:56 Other: DRUG UTILIZATION REPORT was scanned into [employer] and attached to record. gb Signatures: Perlita Petersen RN RN srm Barnhardt, Gloria, Racheal Ellis RN RN [facility] Julee Murrell, PA-C PA-C Sharon Brito Kathie klr The chart was reviewed and I authenticate all verbal orders and agree with the evaluation and treatment provided.Attachments: 09/09 17:46 [facility] Payment Agreement [facility] 21:16 T-Sheet-- Draft Copy klr Chart Complete MTDD
--- NOTE | 2016-09-11 18:49 | EDDOCDS ---
Nurse's Notes [facility] Name: Winston Rosario Age: 31 yrs Sex: Male : 1985 Arrival Date: 09/09/2016 Time: 15:58 Bed TR8 Private MD: No Pcp Diagnosis: Low back pain;Radiculopathy, lumbar region Presentation: 09/09 16:04 Presenting complaint: Patient states: low back pain that radiates down left leg. has srm had MRI and showed ruptured discs and DDD. pain for 4 days. cant do every day normal activities. Acute neurological deficits are not present. Mechanism of Injury: No Mechanism of Injury. Adult Sepsis Screening: The patient does not have new or worsening altered mentation. Patient's respiratory rate is less than 22. Systolic blood pressure is greater than 100. Patient has a qSOFA score of 0- Negative Sepsis Screen. Suicide/Homicide risk assessment- the patient denies having any suicidal and/or homicidal ideations and does not present with any other emotional, behavioral or mental health complaints. 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 Transition of care: patient was not received from another setting of care. 16:04 Acuity: LIAN Level 4 srm 16:04 Method Of Arrival: Walkin/Carried/Asstd srm Triage Assessment: 16:07 General: Appears in no apparent distress, Behavior is appropriate for age, cooperative. srm Pain: Pain currently is 10 out of 10 on a pain scale. Pain: Pain. HIV screening NA for this visit Offered previously. Musculoskeletal: Reports chronic low back pain. Historical: - Allergies: no known allergies; - Home Meds: 1. none - PMHx: low back pain; ruptured discs; - PSHx: none; - Social history: No barriers to communication noted, The patient speaks fluent South Korean, Speaks appropriately for age, Smoking status: Patient uses tobacco products, current every day smoker. - Family history: Not pertinent. - : The pt / caregiver states he / she is not on anticoagulants. Home medication list is obtained from the patient. - Exposure Risk Screening:: None identified. Screenin:46 Screening information is obtained from the patient. Fall risk: No risks identified. [facility] Assistance ADL's: requires no assistance with activities of daily living. Abuse/DV Screen: The patient / caregiver reports he/she is: not in a situation that causes fear, pain or injury. Nutritional screening: No deficits noted. Advance Directives: There is no active DNR order. home support is adequate. Assessment: 17:46 General: Appears in no apparent distress, comfortable, Behavior is appropriate for age, cjh cooperative. Pain: Location: back Pain currently is 8 out of 10 on a pain scale. Respiratory: Airway is patent Respiratory effort is even, unlabored, Respiratory pattern is regular, symmetrical. Derm: Skin is pink, warm & dry. Musculoskeletal: Range of motion intact in all extremities. torso movements slow and guarded. Vital Signs: 16:01 BP 122 / 69; Pulse 69; Resp 18 S; Temp 97.4(O); Pulse Ox 98% on R/A; Weight 90.72 kg gr2 (R); Height 5 ft. 7 in. (170.18 cm) (R); Pain 8/10; 17:42 BP 121 / 74; Pulse 57; Resp 16; Temp 96.9(O); Pulse Ox 96% ; Pain 10/10; sew 16:01 Body Mass Index 31.32 (90.72 kg, 170.18 cm) gr2 Vitals: 16:01 Log In Time: September 09, 2016 at 16:01. gr2 ED Course: 16:00 Patient visited by Son Koenig. gr2 16:00 No Pcp is Private Physician. gr2 16:00 Patient moved to Waiting gr2 16:02 Patient visited by Son Koenig. gr2 16:02 Patient moved to Pre RCE gr2 16:06 Triage Initiated srm 16:41 Patient moved to Triage 2 bcj 17:15 Julee Murrell PA-C is PHCP. dt4 17:15 Josefa Banegas MD is Attending Physician. dt4 17:15 Patient visited by Julee Murrell PA-C. dt4 17:33 Robin Sun is Referral Physician. dt4 17:33 [facility] is Referral Physician. dt4 17:42 Patient visited by Melody Pagan. sew 17:46 Patient moved to TR8 sew 17:46 [facility] Payment Agreement was scanned into [employer] and attached to record. gjb 17:46 The patient / caregiver is instructed regarding the plan of care and ED course. cj 17:46 No IV's were initiated during this patient's visit. No procedures done that require [facility] assistance. 21:16 T-Sheet-- Draft Copy was scanned into [employer] and attached to record. klr 09/10 11:56 Other: DRUG UTILIZATION REPORT was scanned into [employer] and attached to record. gb Order Results: There are currently no results for this order. Outcome: 09/09 17:33 Discharge ordered by Provider. dt4 17:46 Discharge Assessment: Patient awake, alert and oriented x 3. No cognitive and/or [facility] functional deficits noted. Patient verbalized understanding of disposition instructions. patient administered narcotics - no. The following High Risk Discharge criteria are identified: None. Discharged to home ambulatory. Condition: good Condition: stable Condition: improved. No special radiology studies were completed. Property :Personal belongings accompany Pt. 17:48 Patient left the ED. [facility] Signatures: Angel Nieto, RN RN Perlita Martin RN RN [facility] Trey, Jennifer, Reg Reg Racheal Carias RN RN [facility] Melody Pagan Gainslee gr2 Julee Murrell PA-C PA-C dt4 Sharon Granados Kathie klr Chart Complete MTDArya
== END 2016-09-09 17:48 | disposition home or self-care (01) ==
LOC: M ED 15:58
DX: M54.16 Radiculopathy, lumbar region (principal); F17.200 Nicotine dependence, unspecified, uncomplicated

== ENCOUNTER 2018-11-21 19:52 | Emergency (ER) | payer MEDICAID, SELFPAY ==
[~2018-11-21] VITALS: Ht 170.2 cm; Wt 79.4 kg
[2018-11-21 19:52] VITALS: BP 152/87
[2018-11-21] MEDS ORDERED: PERI0.126 PO (20:29)
[2018-11-21] MEDS ORDERED: AUGM875T28 PO (20:29)
[2018-11-21] MEDS ORDERED: AUGMENTIN 875 MG TAB PO ONE (20:30)
[2018-11-21] MEDS ORDERED: NAPROXEN 250 MG TAB PO ONE (20:30)
== END 2018-11-21 20:52 | disposition home or self-care (01) ==
LOC: M ED 19:52
DX: K02.9 Dental caries, unspecified (principal)

== ENCOUNTER 2018-11-28 15:13 | Emergency (ER) | payer MEDICAID ==
[~2018-11-28] VITALS: Ht 170.2 cm; Wt 80.6 kg
[2018-11-28 15:13] VITALS: BP 152/90
[~2018-11-28 15:13] MED LIST: AUGM875T28 PO; PERI0.126 PO
[2018-11-28] MEDS ORDERED: AMOX875T2 (15:16)
[2018-11-28] MEDS ORDERED: PRED10TA2 PO (15:48)
== END 2018-11-28 15:55 | disposition home or self-care (01) ==
LOC: M ED 15:13
DX: L23.9 Allergic contact dermatitis, unspecified cause (principal); F17.210 Nicotine dependence, cigarettes, uncomplicated

== ENCOUNTER 2019-03-05 22:00 | Emergency (ER) | payer MEDICAID, OTHER ==
[~2019-03-05] VITALS: Ht 170.2 cm; Wt 77.3 kg
[~2019-03-05 22:00] MED LIST changes: +AMOX875T2; +PRED10TA2 PO
[2019-03-05] MEDS ORDERED: KEFL500C17 PO (22:05)
[2019-03-05] MEDS ORDERED: EQ I1CAP PO (22:05)
[2019-03-06] MEDS ORDERED: IBUP80TA PO (00:24)
[2019-03-06] MEDS ORDERED: AUGM875T28 PO (00:24)
[2019-03-06] MEDS ORDERED: AUGMENTIN 875 MG TAB PO ONE (00:30)
[2019-03-06] MEDS ORDERED: IBUPROFEN 800 MG TAB PO ONE (00:30)
[2019-03-06 00:31] VITALS: BP 146/80
== END 2019-03-06 00:35 | disposition home or self-care (01) ==
LOC: M ED 22:00
DX: K04.7 Periapical abscess without sinus (principal); S02.5XXA Fracture of tooth (traumatic), initial encounter for closed fracture; X58.XXXA Exposure to other specified factors, initial encounter; Y92.9 Unspecified place or not applicable; Y93.9 Activity, unspecified; Y99.9 Unspecified external cause status; Z72.0 Tobacco use

== ENCOUNTER 2020-07-21 09:39 | Emergency (ER) | payer OTHER ==
[~2020-07-21] VITALS: Ht 170.2 cm; Wt 75.0 kg
[2020-07-21 09:39] VITALS: BP 158/76
[~2020-07-21 09:39] MED LIST changes: +IBUP200C89 PO; +IBUP80TA PO; +KEFL500C17 PO
== END 2020-07-21 11:35 | disposition home or self-care (01) ==
LOC: M ED 09:39
DX: Z20.828 Contact with and (suspected) exposure to other viral communicable diseases (principal)
CPT/HCPCS: 99283; U0003

== ENCOUNTER 2020-11-04 09:54 | Emergency (ER) | payer MEDICAID, OTHER ==
[~2020-11-04] VITALS: Ht 170.2 cm; Wt 82.2 kg
[2020-11-04] MEDS ORDERED: ONDANSETRON 4MG/2ML VIAL IV ONE (10:15)
[2020-11-04 10:45] LABS: BASO # 0.1 10^3/uL (0.0-0.2); BASO % 0.3 % (0.0-1.0); EOS % 0.1 % (0.0-3.0); HEMATOCRIT 49.5 % (42.0-52.0); HEMOGLOBIN 17.4 g/dl (13.5-17.5); LYMPH # 1.2 10^3/uL (1.5-5.0); MEAN CORPUSCULAR HEMOGLOBIN 32.6 pg (27.0-33.0); MEAN CORPUSCULAR HGB CONC 35.2 g/dl (32.0-36.5); MEAN CORPUSCULAR VOLUME 92.7 fl (80.0-96.0); MONO # 0.7 10^3/uL (0.0-0.8); MONO % 3.3 % (2.0-8.0); NEUTROPHILS # 17.8 10^3/uL (1.5-8.5); NEUTROPHILS % 89.9 % (36.0-66.0); PLATELET COUNT, AUTOMATED 217 10^3/uL (150-450); RED BLOOD COUNT 5.34 10^6/uL (4.30-6.10); WHITE BLOOD COUNT 19.8 10^3/uL (4.0-10.0)
[2020-11-04] MEDS ORDERED: PROMETHAZINE INJ 25 MG/ML VIAL (J2550) IV ONE (10:55)
[2020-11-04] MEDS ORDERED: MORPHINE 2 MG/ML 1ML VIAL (J2270) IV PRN (10:55)
[2020-11-04] MEDS ORDERED: GI COCKTAIL 50ML BTL(HYOSCYAMINE/MAALOX/LIDOCAINE VISCOUS)(1:3:1) PO ONE (11:05)
[2020-11-04 11:20] LABS: ALBUMIN 4.7 GM/DL (3.2-5.2); ALT/SGPT 31 U/L (12-78); BILIRUBIN,DIRECT 0.1 MG/DL (0.0-0.2); BILIRUBIN,TOTAL 0.5 MG/DL (0.2-1.0); BLOOD UREA NITROGEN 17 MG/DL (7-18); CALCIUM LEVEL 9.9 MG/DL (8.5-10.1); CARBON DIOXIDE LEVEL 27 MEQ/L (21-32); CHLORIDE LEVEL 106 MEQ/L (98-107); CK-MB VALUE MASS 2.5 NG/ML (<3.6); CPK CREATINE PHOSPHOKINASE 299 U/L (39-308); CREATININE FOR GFR 0.98 MG/DL (0.70-1.30); GLOMERULAR FILTRATION RATE > 60.0 (>60); GLUCOSE, FASTING 158 MG/DL (70-100); LIPASE 83 U/L (73-393); MB/CK RELATIVE INDEX 0.84 (< OR =4); POTASSIUM SERUM 4.4 MEQ/L (3.5-5.1); SODIUM LEVEL 141 MEQ/L (136-145); TOTAL PROTEIN 7.9 GM/DL (6.4-8.2); TROPONIN I < 0.02 NG/ML (< 0.10)
[2020-11-04] MEDS ORDERED: NS 1,000 ML IV ONE (11:25)
[2020-11-04] MEDS ORDERED: ISOVUE-370 76% 100ML VIAL As Ordered ONE (11:30)
--- NOTE | 2020-11-04 11:55 | REP ---
INDICATION: vomiting. COMPARISON: No comparison chest x-ray. TECHNIQUE: Portable upright AP chest radiograph. FINDINGS: The lungs are well inflated and free of infiltrate. Pleural angles are sharp. Heart size is normal. Pulmonary vasculature is not increased. EKG monitoring electrodes are seen. IMPRESSION: No active disease. <Electronically signed by Jaron Sharp > 11/04/20 [id number]
--- NOTE | 2020-11-04 12:30 | REP ---
INDICATION: pain/vomiting COMPARISON: None. TECHNIQUE: CT Scan of the abdomen and pelvis was performed with intravenous administration of 100 cc of Isovue 370, without oral contrast. Sagittal and coronal reconstruction images are performed. FINDINGS: Lung bases: There is a small hiatal hernia. Liver: Normal Gallbladder: Unremarkable. Spleen: Normal. Adrenals: Normal. Pancreas: Normal. Kidneys: Normal. Small and large bowel: Unremarkable. There is no free air or obstruction. Free fluid: None. Abdominal aorta: No aneurysm or dissection. Adenopathy: None. Appendix: Not inflamed. Osseous structures: Unremarkable. Pelvis: No mass. IMPRESSION: Negative CT abdomen and pelvis. <Electronically signed by Justino Asif > 11/04/20 [id number]
[2020-11-04] MEDS ORDERED: HALOPERIDOL 5MG/ML VIAL (J1630 PER 1) IV ONE (13:35)
[2020-11-04 14:39] LABS: CK-MB VALUE MASS 2.3 NG/ML (<3.6); CPK CREATINE PHOSPHOKINASE 286 U/L (39-308); TROPONIN I < 0.02 NG/ML (< 0.10)
[2020-11-04] MEDS ORDERED: ONDA4TAB6 PO (15:33)
[2020-11-04 17:37] VITALS: BP 137/69
--- NOTE | 2020-11-04 19:54 | ECGEPIP ---
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
--- NOTE | 2020-11-04 19:58 | ECGEPIP ---
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
== END 2020-11-04 17:43 | disposition home or self-care (01) ==
LOC: M ED 09:54
DX: R10.9 Unspecified abdominal pain (principal); R11.10 Vomiting, unspecified; F17.210 Nicotine dependence, cigarettes, uncomplicated
CPT/HCPCS: 71045; 74177; 80048; 80076; 82550; 82553; 83605; 83690; 85025; 93005; 93041; 96361; 96374; 96375; 99285; J1630; J2405; Q9967

== ENCOUNTER 2021-07-02 10:40 | Emergency (ER) | payer BC, MEDICAID, OTHER ==
[~2021-07-02] VITALS: Ht 170.2 cm; Wt 81.8 kg
[~2021-07-02 10:40] MED LIST changes: +ONDA4TAB6 PO
[2021-07-02 12:50] VITALS: BP 129/67
== END 2021-07-02 12:51 | disposition home or self-care (01) ==
LOC: M ED 10:40
DX: R11.10 Vomiting, unspecified (principal); R52 Pain, unspecified; F17.210 Nicotine dependence, cigarettes, uncomplicated; F12.20 Cannabis dependence, uncomplicated
CPT/HCPCS: 99283; U0003

== ENCOUNTER 2023-05-02 18:35 | Emergency (ER) | payer MEDICAID, OTHER ==
[2023-05-02 18:36] VITALS: TEMP 97.6; O2SAT 99
[2023-05-02 20:16] LABS: BASO # 0.1 10^3/uL (0.0-0.2); BASO % 0.3 % (0.0-1.0); EOS % 0.1 % (0.0-3.0); HEMATOCRIT 45.3 % (42.0-52.0); HEMOGLOBIN 16.4 g/dl (13.5-17.5); LYMPH # 1.3 10^3/uL (1.5-5.0); LYMPH % 7.1 % (24.0-44.0); MEAN CORPUSCULAR HEMOGLOBIN 32.1 pg (27.0-33.0); MEAN CORPUSCULAR HGB CONC 36.2 g/dl (32.0-36.5); MEAN CORPUSCULAR VOLUME 88.6 fl (80.0-96.0); MONO # 0.4 10^3/uL (0.0-0.8); MONO % 2.3 % (2.0-8.0); NEUTROPHILS % 89.8 % (36.0-66.0); PLATELET COUNT, AUTOMATED 285 10^3/uL (150-450); RED BLOOD COUNT 5.11 10^6/uL (4.30-6.10)
[2023-05-02 20:27] LABS: LIPASE 28 U/L (12-53)
[2023-05-02 20:29] LABS: ALBUMIN 4.4 G/DL (3.2-5.2); ALKALINE PHOSPHATASE 63 U/L (46-116); ALT/SGPT 55 U/L (7.0-40); AST/SGOT 35 U/L (<34); BILIRUBIN,DIRECT 0.3 MG/DL (<0.4); TOTAL PROTEIN 7.3 G/DL (5.7-8.2)
[2023-05-02] MEDS ORDERED: LORazepam 2 MG/ML 1ML VIAL IV STA (21:27)
[2023-05-02] MEDS ORDERED: HALOPERIDOL 5MG/ML 1ML VIAL IM STA (21:27)
[2023-05-02] MEDS ORDERED: KETOROLAC 30 MG/ML 1ML VIAL IV ONE (21:30)
[2023-05-02] MEDS ORDERED: PROMETHAZINE 25MG/ML 1ML VIAL IV ONE (21:30)
[2023-05-02] MEDS ORDERED: ISOVUE-370 76% 100ML VIAL As Ordered ONE (21:42)
[2023-05-02 21:57] LABS: CK-MB VALUE MASS < 1.0 NG/ML (<3.6)
[2023-05-02 22:02] LABS: CPK CREATINE PHOSPHOKINASE 117 U/L (46-171); MB/CK RELATIVE INDEX 0.85 (< OR =4)
[2023-05-03] MEDS ORDERED: ONDA4TAB6 PO (01:02)
[2023-05-03 01:17] VITALS: BP 115/59
== END 2023-05-03 01:18 | disposition home or self-care (01) ==
LOC: M ED 18:35
DX: F12.188 Cannabis abuse with other cannabis-induced disorder (principal); I45.81 Long QT syndrome; Z87.891 Personal history of nicotine dependence; Z79.83 Long term (current) use of bisphosphonates
CPT/HCPCS: 71045; 74177; 80047; 80076; 82550; 82553; 83605; 83690; 85025; 93005; 96374; 99284; J1630; J1885; J2060; J2550; Q9967